=== PATIENT | male | born 1995 | race Caucasian/White ===

== ENCOUNTER 2021-06-26 06:33 | Emergency (ER) | payer OTHER ==
[~2021-06-26] VITALS: Ht 175 cm; Wt 101.2 kg
[2021-06-26 06:43] VITALS: BP 161/110
[2021-06-26] MEDS ORDERED: FLUORESCEIN (FLUOR-I-STRIPS) 1 MG STRP OU ONE (07:00)
[2021-06-26] MEDS ORDERED: BSS 15 ML IR ONE (07:00)
[2021-06-26] MEDS ORDERED: TETRACAINE 0.5% OPHTH SOLN 4 ML BTL (SINGLE DOSE ONLY) OU ONE (07:00)
--- NOTE | 2021-06-26 07:28 | ED EENT ---
History of Present Illness General Chief Complaint: Eye Problems Stated Complaint: RT EYE PAIN Nursing Triage Note: Pt awake, alert, oriented. Ambulated from waiting room to ER 1 without difficulty. Pt reports that he felt like he got something in his right eye yesterday, so he took out his contact lenses. When he woke up today, his right eye hurt a lot worse et is reddened. Denies fever or sick contacts. Airway intact. Respirations even et unlabored. Skin warm, dry, appropriate for ethnicity. No sx of acute distress. History of Present Illness Date Seen by Provider: Jun 26, 2021 Time Seen by Provider: 07:05 Initial Comments 26-year-old male feels like he has something in his right eye. He reports that yesterday he was working under a car. Patient states that he felt like he got something in it so he took out his contacts. That during the night his eye started hurting a lot worse and became reddened. It was suddenly worse this morning and woke him up around 5. Patient does not have any known sick contacts or other complaints such as fevers chills nausea vomiting cough. Allergies and Home Medications Allergies Coded Allergies: No Known Drug Allergies (Unverified , 06/26/21) Patient Home Medication List Home Medication List Reviewed: Yes Review of Systems Review of Systems Constitutional: No see HPI, No chills Eyes: Foreign Body Sensation, Inflammation, Pain, Photophobia, Contact Lenses Ears: No Symptoms Reported Nose: no symptoms reported Mouth: no symptoms reported Throat: no symptoms reported Respiratory: no symptoms reported Cardiovascular: no symptoms reported Gastrointestinal: no symptoms reported Musculoskeletal: no symptoms reported Past [id number] Hx Patient Social History Tobacco Use?: No Smokeless Tobacco Frequency: Never a User Use of E-Cig and/or Vaping dev: No Substance use?: No Alcohol Use?: Yes Alcohol Frequency: Once in a while Pt feels they are or have been: No Immunizations Up To Date Influenza Vaccine Up-to-Date: Yes; Up-to-Date First/Initial COVID19 Vaccinat: unknown Second COVID19 Vaccination Luca: unknown COVID19 Vaccine Admissions Dean: [employer] Physical Exam Vital Signs Vital Signs - First Documented 06/26/21 06:43 Temp 36.4 Pulse 96 Resp 18 B/P (MAP) 161/110 (127) Pulse Ox 97 O2 Delivery Room Air Height, Weight, BMI Height: '" Weight: lbs. oz. kg; 33.00 BMI Method: General Appearance: mild distress Eyes: right eye conjunctival inflammation; left eye normal inspection, left eye PERRL Nose: normal inspection Cardiovascular: normal peripheral pulses, regular rate, rhythm Respiratory: no respiratory distress, no accessory muscle use Gastrointestinal: non tender, soft Neurologic/Psychiatric: alert, normal mood/affect Skin: normal color, warm/dry Progress/Results/Core Measures Results/Orders Vital Signs/I&O 06/26/21 06:43 Temp 36.4 Pulse 96 Resp 18 B/P (MAP) 161/110 (127) Pulse Ox 97 O2 Delivery Room Air Blood Pressure Mean: 127 Progress Progress Note : Progress Note Patient has quite a bit of inflammation of the right conjunctiva. There is no foreign body visualized on exam. No corneal abrasion was noted. Patient does have an underlying eye condition with what he describes as thinning of the conjunctiva-. He denies any visual changes. I will start him on antibiotic drop as it could possibly be conjunctivitis with no foreign body or abrasion noted. We are calling to make an appointment with eye doctor to have a recheck of his symptoms. Departure Impression Primary Impression: Conjunctivitis Qualified Codes: H10.31 - Unspecified acute conjunctivitis, right eye Disposition: 01 HOME, SELF-CARE Condition: Stable Departure-Patient Inst. Referrals: NO,LOCAL PHYSICIAN (PCP/Family) Primary Care Physician Patient Instructions: Conjunctivitis ([place]) (DC) Add. Discharge Instructions: Follow-up with the eye doctor upon discharge All discharge instructions reviewed with patient and/or family. Voiced understanding. HORACIO MENSAH DO Jun 26, 2021 07:28
== END 2021-06-26 07:35 | disposition home or self-care (01) ==
LOC: ER FS 06:39
DX: H10.9 Unspecified conjunctivitis (principal)
CPT/HCPCS: 99281